=== PATIENT | female | born 1990 | race Caucasian/White ===

== ENCOUNTER 2017-09-25 18:45 | Observation (INO) ==
[2017-09-25 19:18] LABS: Bilirubin,Urine Negative (Negative); Blood,Urine Small (Negative); Clarity,Urine Cloudy (Clear); Color,Urine Dark Yellow (Yellow); Glucose,Urine (UA) Normal (Normal); Ketones,Urine Trace mg/dL (Negative); Leukocyte Esterase,Urine Moderate (Negative); Nitrite,Urine Negative (Negative); Protein,Urine Trace mg/dL (Neg-Trace); Specific Gravity,Urine > 1.030 (1.010-1.025); Urobilinogen,Urine Normal (Normal)
--- NOTE | 2017-09-25 19:20 | OB/GYN Progress Note ---
Date of Encounter: 09/25/17 Time of Encounter: 19:15 - Assessment and Plan (1) 37 weeks gestation of Current Visit: Yes Status: Acute patient admitted for labor evaluation (2) NST (non-stress test) reactive on surveillance Current Visit: Yes Status: Acute baseline 135 bpm moderate variability +15x15 accels no decels noted. Cat. 1 tracing Subjective - Subjective Principal diagnosis: contractions Interval history: Patient is a 27 y/o @ 37w2d presents to labor and delivery with complaints of contractions that started yesterday but in the past 2 hours have became closer to 5 min apart. Patient denies any LOF or VB. Patient reports +FM. Patient denies any dysuria, headache, visual disturbances or SOB. Patients is complicated by Thrombocytopenia and right ventricular cardiomyopathy seen on recent Echo. Patient was referred to DAY CARE AIDE but has not been seen at this time. Antepartum ROS: movement normal, contractions, no loss of fluid, no vaginal bleeding Objective - Exam FHR: auscultation normal, category 1 FHR comments: FHR baseling 135 bpm moderate variability +15x15 accels no decels noted. Cat. 1 tracing. Contractions are irregular. Auscultation: bilateral: normal Abdomen: Present: normal appearance, soft, gravid Uterus: Present: normal Cervical dilation: 1 Cervix effacement: 50 station: ballotable
[2017-09-25 19:24] LABS: Bacteria,Urine Moderate per hpf (None-Few); Hyaline Casts,Urine Few per lpf (None-Few); RBC,Urine 15-30 per hpf (0-3); Squamous Epithelial Cell,Urine Many per lpf (None-Few); WBC,Urine 15-30 per hpf (0-3)
[2017-09-25 20:16] LABS: Amphetamine Screen,Urine Negative ng/mL (Cutoff=1000); Barbiturate Screen,Urine Negative ng/mL (Cutoff=200); Benzodiazepines Screen,Urine Negative ng/mL (Cutoff=200); Cannabinoid Screen,Urine Negative ng/mL (Cutoff = 50); Cocaine Screen,Urine Negative ng/mL (Cutoff= 300); Opiate Screen,Urine Negative ng/mL (Cutoff=300); Phencyclidine Screen,Urine Negative ng/mL (Cutoff=25)
--- NOTE | 2017-09-25 21:21 | Discharge Summary ---
Date of Encounter: 09/25/17 Time of Encounter: 21:20 - Discharge Diagnosis (1) 37 weeks gestation of Priority: Primary Status: Acute Comments: false labor discharge home follow up as scheduled (2) NST (non-stress test) reactive on surveillance Priority: Secondary Status: Acute Comments: baseline 130 bpm moderate variability +15x15 accels no decels noted. Cat. 1 tracing. - Discharge Medications Home Medications: Vit #108/Iron/FA [ One Tablet] 1 each PO DAILY 03/06/17 [ History] Famotidine [Pepcid] 10 mg PO BID 09/25/17 [History] Allergies/Adverse Reactions: 3 Allergy/AdvReac Type Severity Reaction Status Date / Time Penicillins Allergy Rash Verified 04/13/17 15:55 aspirin AdvReac Nausea Verified 04/13/17 15:55 Data Procedures and tests throughout hospitalization: Laboratory Tests 09/25/17 09/25/17 18:55 19:00 Urine Color Dark Yellow Urine Clarity Cloudy A Urine pH 6.0 Ur Specific Benedict > 1.030 H Urine Protein Trace Urine Glucose (UA) Normal Urine Ketones Trace H Urine Blood Small H Urine Nitrite Negative Urine Bilirubin Negative Urine Urobilinogen Normal Ur Leukocyte Esterase Moderate H Urine Microscopic RBC 15-30 H Urine Microscopic WBC 15-30 H Ur Squamous Epith Cells Many H Urine Bacteria Moderate H Hyaline Casts Few Ur Culture Indicated? NO. A Urine Opiates Screen Negative Ur Barbiturates Screen Negative Ur Phencyclidine Scrn Negative Ur Amphetamines Screen Negative U Benzodiazepines Scrn Negative Urine Cocaine Screen Negative U Marijuana (THC) Screen Negative Labs on day of discharge: Labs from last 24 hours 09/25/17 09/25/17 19:00 18:55 Urine Color Dark Yellow Urine Clarity Cloudy A Urine pH 6.0 Ur Specific Benedict > 1.030 H Urine Protein Trace Urine Glucose (UA) Normal Urine Ketones Trace H Urine Blood Small H Urine Nitrite Negative Urine Bilirubin Negative Urine Urobilinogen Normal Ur Leukocyte Esterase Moderate H Urine Microscopic RBC 15-30 H Urine Microscopic WBC 15-30 H Ur Squamous Epith Cells Many H Urine Bacteria Moderate H Hyaline Casts Few Ur Culture Indicated? NO. A Urine Opiates Screen Negative Ur Barbiturates Screen Negative Ur Phencyclidine Scrn Negative Ur Amphetamines Screen Negative U Benzodiazepines Scrn Negative Urine Cocaine Screen Negative U Marijuana (THC) Screen Negative Date of admission: 09/25/17 18:45 Discharging clinician: Abimbola Allan Anticipated date of discharge: 09/25/17 - Patient Status Disposition: Home, Self-Care Condition: Good - Discharge Instructions Follow Up With: Elisabeth Venegas CNM [Non-Partnered Physician] - - Diet and Activity Activity: increase activity as tolerated Diet: regular diet Hospital Course [employer] Time Attestation: Total time spent providing and/or coordinating discharge services: Time Spent: Less than 30 minutes Exam - Other Additional findings: SVE 1.5/50/-3 FHR 130 bpm moderate variability +15x15 accels no decels. Contractions irregular. CAt. 1 tracing - VTE Reasons for not Prescribing Prophylaxis: Treatment not Indicated - Low risk for VTE
== END 2017-09-25 21:40 | disposition home or self-care (01) ==
LOC: 1NENULAB
PROVIDERS: ADMIT Student in an Organized Health Care Education/Training Program; ATTEND Student in an Organized Health Care Education/Training Program

== ENCOUNTER 2017-10-09 04:34 | Inpatient (IN) ==
[2017-10-09] MEDS ORDERED: Famotidine 20 MG/2 ML VIAL IVP PRN (04:38)
[2017-10-09] MEDS ORDERED: *HR* Nalbuphine 10 MG/ML AMPUL IVP PRN (04:38)
[2017-10-09] MEDS ORDERED: Metoclopramide 10 MG/2 ML VIAL IVP PRN (04:38)
[2017-10-09] MEDS ORDERED: Naloxone 0.4 MG/ML INJ IVP PRN (04:38)
[2017-10-09] MEDS ORDERED: Ondansetron 4 MG/2 ML VIAL IVP PRN (04:38)
[2017-10-09] MEDS ORDERED: Ringers Solution, Lactated 1,000 ML IVC SCH (04:45)
--- NOTE | 2017-10-09 04:54 | OB/GYN History & Physical ---
Date of Encounter: 10/09/17 Time of Encounter: 04:49 Assessment and Plan (1) 39 weeks gestation of Current visit: Yes Status: Acute (2) Vaginal bleeding Current visit: Yes Status: Acute Due to term , vaginal bleeding, and deceleration heard on monitor we will admit to labor and delivery Standard labor and delivery orders Nubain and epidural as desired Expectant management at this time Patient requests tubal ligation if needed section Anticipate (3) Arrhythmogenic right ventricular cardiomyopathy Current visit: Yes Status: Acute Cleared by [facility] to deliver at [place], will need echo 8 weeks History of Present Illness Chief complaint: Vaginal bleeding HPI: Ms. Astudillo is a 27 year old female 39+2 weeks gestation presents to triage with complaints of vaginal bleeding. Recent states she was sitting on the couch earlier and the felt a gush that her water broke, look down and saw a large amount of red bleeding. When patient arrived in triage bleeding was noted to her pad and bilateral thighs and labia. Reporting good movement , denies leaking of fluid or contractions. Last intercourse for days ago. care by midwives. 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 Patient was seen by FULL DECATOR OPERATOR, was cleared to deliver at [facility] per her note in chart will need follow-up MRI at [facility] a weeks Labs: B+, rubella immune, GBS negative, all other serologies negative Past Med Surg Social Fam HX - Past Medical History Medical history: cardiomyopathy (Right ventricular arrhythmiagenic) Additional medical history: cardiomyopathy during this Psychiatric history: no psych history - Past Surgical History Additional surgical history: tonsillectomy - Social History Smoking Status: Current every day smoker Packs per day: 3cigs Smokeless Tobacco Status: No Alcohol use: none Drug use: none - Family History Mother Living Status: Hx Family Cardiac Disorders: Yes (HTN) Hx Family Respiratory Disorders: Yes (COPD) Hx Family Cancer: Yes (uterine) Hx Family GI Disorders: No Hx Family Endocrine Disorder: No Hx Family Neuromuscular Disorders: No Hx Family Neurologic Disorders: No Hx Family HEENT Disorders: No Hx Family Autoimmune Disorders: No Obstetrical History - Pregnancies : 3 Para: 2 Term: 2 : 0 Ab's: 0 Livin Medications and Allergies Vit #108/Iron/FA [ One Tablet] 1 each PO DAILY 03/06/17 [ History] 3 Allergy/AdvReac Type Severity Reaction Status Date / Time Amoxicillin Allergy Hives Verified 10/09/17 04:03 Penicillins Allergy Rash Verified 10/09/17 04:03 aspirin AdvReac Nausea Verified 10/09/17 04:03 Exam - Constitutional Constitutional: well developed, well nourished, no acute distress, average body habitus - Neck Neck exam: full ROM - Lungs Respiratory exam: CTAB - Cardiovascular Cardiovascular exam: RRR - Abdomen Abdomen: Present: gravid, non tender - Extremities Extremities exam: normal capillary refill, normal inspection - Vagina Vagina: Absent: normal moisture (Speculum exams shows small amount of dark red thick blood. Swabbed until clear, no active bleeding noted, no increased bleeding noted with cervical exam) - Cervix Dilation: 4 Effacement: 80 Station: -2 Results All other labs normal. - VTE Reasons for not Prescribing Prophylaxis: Treatment not Indicated - Low risk for VTE
[2017-10-09 04:59] LABS: Basophils % 0.2 %; Eosinophils # 0.1 K/mcL (0.0-0.6); Eosinophils % 0.9 %; Hematocrit 35.2 % (35.3-44.9); Immature Granulocytes % 0.6 % (0-4); Lymphocytes # 3.3 K/mcL (0.6-4.6); Lymphocytes % 22.3 %; Mean Corpuscular HGB Conc 34.1 g/dL (31.6-35.5); Mean Corpuscular Hemoglobin 30.1 pg (28.0-33.3); Mean Corpuscular Volume 88.2 fL (83.0-100.0); Mean Platelet Volume 13.5 fL (9.4-12.4); Monocytes % 6.5 %; Neutrophils # 10.4 K/mcL (1.6-8.9); Platelet Count 155 K/mcL (140-400); Red Blood Count 3.99 M/mcL (3.82-4.97); Red Cell Distribution Width 13.2 % (11.5-14.5); Segmented Neutrophils % 69.5 %
[2017-10-09 05:17] LABS: Alanine Aminotransferase 6 Units/L (7-52); Aspartate Amino Transferase 14 Units/L (13-39); BUN/Creatinine Ratio 8 (6-26); Blood Urea Nitrogen 5 mg/dL (6-20); Lactate Dehydrogenase 179 Units/L (140-271); Uric Acid 6.9 mg/dL (2.3-7.6); eGFR For African Americans > 60 (> 60); eGFR For Non-African Americans > 60 (> 60)
[2017-10-09 05:22] LABS: Amphetamine Screen,Urine Negative ng/mL (Cutoff=1000); Barbiturate Screen,Urine Negative ng/mL (Cutoff=200); Benzodiazepines Screen,Urine Negative ng/mL (Cutoff=200); Cannabinoid Screen,Urine Negative ng/mL (Cutoff = 50); Cocaine Screen,Urine Negative ng/mL (Cutoff= 300); Opiate Screen,Urine Negative ng/mL (Cutoff=300); Phencyclidine Screen,Urine Negative ng/mL (Cutoff=25)
--- NOTE | 2017-10-09 09:00 | Discharge Summary ---
Date of Encounter: 10/09/17 Time of Encounter: 08:58 - Discharge Diagnosis (1) 39 weeks gestation of Priority: Primary Status: Acute Comments: Accepted for transfer by Dr Braun to [facility] Will transfer due to anesthesia concerns with cardiomyopathy Currently stable bleeding, no cervical change x 3.5 hours POC per consult with Dr Munoz (2) Arrhythmogenic right ventricular cardiomyopathy Priority: Primary Status: Acute (3) Vaginal bleeding Priority: Primary Status: Acute - Discharge Medications Home Medications: Vit #108/Iron/FA [ One Tablet] 1 each PO DAILY 03/06/17 [ History] Allergies/Adverse Reactions: 3 Allergy/AdvReac Type Severity Reaction Status Date / Time Amoxicillin Allergy Hives Verified 10/09/17 04:03 Penicillins Allergy Rash Verified 10/09/17 04:03 aspirin AdvReac Nausea Verified 10/09/17 04:03 Data Procedures and tests throughout hospitalization: Laboratory Tests 10/09/17 10/09/17 10/09/17 04:02 04:50 04:50 WBC 15.0 H RBC 3.99 Hgb 12.0 Hct 35.2 L MCV 88.2 MCH 30.1 MCHC 34.1 RDW 13.2 Plt Count 155 MPV 13.5 H Immature Gran % 0.6 Seg Neutrophils % 69.5 Lymphocytes % 22.3 Monocytes % 6.5 Eosinophils % 0.9 Basophils % 0.2 Neutrophils # 10.4 H Lymphocytes # 3.3 Monocytes # 1.0 Eosinophils # 0.1 Basophils # 0.0 BUN 5 L Creatinine 0.66 Est GFR ( Amer) > 60 Est GFR (Non-Af Amer) > 60 BUN/Creatinine Ratio 8 Uric Acid 6.9 AST 14 ALT 6 L Lactate Dehydrogenase 179 Urine Opiates Screen Negative Ur Barbiturates Screen Negative Ur Phencyclidine Scrn Negative Ur Amphetamines Screen Negative U Benzodiazepines Scrn Negative Urine Cocaine Screen Negative U Marijuana (THC) Screen Negative Labs on day of discharge: Labs from last 24 hours 10/09/17 10/09/17 10/09/17 04:50 04:50 04:02 WBC 15.0 H RBC 3.99 Hgb 12.0 Hct 35.2 L MCV 88.2 MCH 30.1 MCHC 34.1 RDW 13.2 Plt Count 155 MPV 13.5 H Immature Gran % 0.6 Seg Neutrophils % 69.5 Lymphocytes % 22.3 Monocytes % 6.5 Eosinophils % 0.9 Basophils % 0.2 Neutrophils # 10.4 H Lymphocytes # 3.3 Monocytes # 1.0 Eosinophils # 0.1 Basophils # 0.0 BUN 5 L Creatinine 0.66 Est GFR ( Amer) > 60 Est GFR (Non-Af Amer) > 60 BUN/Creatinine Ratio 8 Uric Acid 6.9 AST 14 ALT 6 L Lactate Dehydrogenase 179 Urine Opiates Screen Negative Ur Barbiturates Screen Negative Ur Phencyclidine Scrn Negative Ur Amphetamines Screen Negative U Benzodiazepines Scrn Negative Urine Cocaine Screen Negative U Marijuana (THC) Screen Negative Date of admission: 10/09/17 04:38 Discharging clinician: Ani Carbajal - Patient Status Disposition: Transfer Critical Access Hosp Condition: Fair Functional capacity at discharge: independent ambulation Overall status at discharge: patient is not back to baseline - Discharge Instructions Follow Up With: Ani Carbajal CNM [Advanced Practice Nurse] - - Diet and Activity Activity: other Diet: other Hospital Course [employer] TEAM LEAD Reason for admission: other (vaginal bleeding, term ) Time Attestation: Total time spent providing and/or coordinating discharge services: Time Spent: Less than 30 minutes Exam - Constitutional General appearance IM: cooperative, A&O X 3, pleasant - Respiratory Respiratory exam: Present: CTAB - Cardiovascular Cardiovascular exam IM: Present: RRR, +S1, +S2 - GI/Abdominal GI/Abdominal exam IM: normal bowel sounds, soft - Additional comments: 4/80/-1 mild dianna vaginal bleeding - Extremities Exam Extremities exam IM: Present: normal capillary refill, normal inspection, radial pulses palpable and symmetrical - Neurological Exam Neurological exam: alert, oriented X3 - VTE Reasons for not Prescribing Prophylaxis: Treatment not Indicated - Low risk for VTE
[2017-10-09 09:05] VITALS: BP 126/77
== END 2017-10-09 09:42 | disposition critical access hospital (66) | DRG 561 ==
LOC: 1NENULAB
PROVIDERS: ADMIT Advanced Practice Midwife; ATTEND Advanced Practice Midwife

== ENCOUNTER 2021-07-22 05:40 | Observation (INO) ==
[2021-07-22] MEDS ORDERED: Naloxone 0.4 MG/ML INJ IVP PRN (07:55)
[2021-07-22] MEDS ORDERED: Ondansetron 4 MG/2 ML VIAL IVP PRN (07:55)
[2021-07-22] MEDS ORDERED: Ketorolac 30 MG/ML VIAL IVP PRN (07:55)
[2021-07-22] MEDS ORDERED: Perflutren Lipid Microsphere 1.3 ML in 0.9 % Sodium Chloride 8.7 ML IVP PRN (07:56)
[2021-07-22 08:56] LABS: Basophils % 0.4 %; Eosinophils # 0.2 K/mcL (0.0-0.6); Eosinophils % 2.7 %; Hematocrit 40.9 % (35.3-44.9); Immature Granulocytes % 0.2 % (0-4); Lymphocytes # 1.9 K/mcL (0.6-4.6); Lymphocytes % 22.9 %; Mean Corpuscular HGB Conc 34.2 g/dL (31.6-35.5); Mean Corpuscular Hemoglobin 31.3 pg (28.0-33.3); Mean Corpuscular Volume 91.3 fL (83.0-100.0); Mean Platelet Volume 12.8 fL (9.4-12.4); Monocytes # 0.8 K/mcL (0.0-1.3); Monocytes % 9.4 %; Neutrophils # 5.4 K/mcL (1.6-8.9); Platelet Count 129 K/mcL (140-400); Red Blood Count 4.48 M/mcL (3.82-4.97); Red Cell Distribution Width 12.3 % (11.5-14.5); Segmented Neutrophils % 64.4 %; White Blood Count 8.4 K/mcL (4.3-11.1)
[2021-07-22 09:09] LABS: BUN/Creatinine Ratio 18 (6-26); Blood Urea Nitrogen 14 mg/dL (6-20); Calcium 8.8 mg/dL (8.6-10.3); Carbon Dioxide 25 mEq/L (23-29); Chloride 104 mEq/L (98-107); Glucose 101 mg/dL (70-105); Osmolality,Calculated 283 (280-300); Potassium 3.4 mEq/L (3.5-5.1); Sodium 136 mEq/L (136-145); eGFR For African Americans > 60 (> 60); eGFR For Non-African Americans > 60 (> 60)
[2021-07-22] MEDS ORDERED: *HR* Heparin 5,000 UNIT/ML VIAL IVP PRN ×2 (12:34)
[2021-07-22] MEDS ORDERED: *HR* Heparin 5,000 UNIT/ML VIAL IVP ONE (12:34)
[2021-07-22] MEDS ORDERED: Heparin 25,000UNIT/250ML 1/2NS 25,000 UNIT/250 ML IV.SOLN IVC SCH (12:45)
[2021-07-22] MEDS: Nitroglycerin 0.2 MG PATCH.TD24 TD SCH (13:18)
[2021-07-22] MEDS: Aspirin Enteric Coated 81 MG Tablet PO SCH (13:35)
[2021-07-22] MEDS ORDERED: *HR* Midazolam HCl 2 MG/2 ML VIAL ONE (14:07)
[2021-07-22] MEDS ORDERED: *HR* FentaNYL (PF) 100 MCG/2 ML VIAL ONE (14:07)
[2021-07-22] MEDS ORDERED: Nitroglycerin 1,000 MCG/5 ML VIAL IV ONE (14:08)
[2021-07-22] MEDS ORDERED: *HR* Heparin 10,000 UNIT/10 ML VIAL ONE (14:08)
[2021-07-22] MEDS ORDERED: 0.9 % Sodium Chloride 1,000 ML ONE (14:08)
[2021-07-22] MEDS ORDERED: Heparin 1,000 UNITS/500 mL 500 ML ONE (14:08)
[2021-07-22] MEDS ORDERED: ISOVUE-370 200 ML INFUS..BTL ONE (14:08)
[2021-07-22] MEDS ORDERED: Acetaminophen 325 MG TABLET PO PRN (21:45)
[2021-07-23 04:47] VITALS: BP 102/63; PULSE 80; TEMP 97; O2SAT 95
[2021-07-23] MEDS: Nitroglycerin 0.2 MG PATCH.TD24 TD SCH (08:09)
[2021-07-23] MEDS: Aspirin Enteric Coated 81 MG Tablet PO SCH (08:09)
[2021-07-23] MEDS ORDERED: Colchicine 0.6 MG TABLET PO SCH (10:15)
[2021-07-23] MEDS ORDERED: *HR* Remifentanil 1 MG VIAL IVP ONE (14:40)
[2021-07-23] MEDS ORDERED: Ibuprofen 600 MG TABLET PO SCH (15:00)
== END 2021-07-23 11:11 | disposition home or self-care (01) ==
LOC: 3NENU → SUATTDRO 07:37
PROVIDERS: ADMIT Internal Medicine; ATTEND Internal Medicine